=== PATIENT | male | born 1995 | race Caucasian/White ===

== ENCOUNTER → 2019-06-17 18:35 | Outpatient (CLI) | payer OTHER, SELFPAY ==
[2019-06-17 19:18] LABS: Influenza A - CEPHEID Flu A NEGATIVE (NEGATIVE); Influenza B - CEPHEID Flu B NEGATIVE (NEGATIVE)
== END ==
PROVIDERS: Family Provider Pediatrics; PCP Pediatrics; Visit Provider Physician Assistant
DX: J11.1 Influenza due to unidentified influenza virus with other respiratory manifestations (principal)
CPT/HCPCS: 87502

== ENCOUNTER 2019-06-18 09:21 | Observation (INO) | payer OTHER, SELFPAY ==
[2019-06-18] VITALS (10 sets, daily range): BP systolic 95–118; BP diastolic 57–75; PULSE 68–92; RESP 15–24; TEMP 36.4–36.6; O2SAT 97–99; BMI 30.4
--- NOTE | 2019-06-18 09:32 | DI.RAD.S_ITS ---
PROCEDURE: XR CHEST 2V INDICATIONS: Shortness of breath TECHNIQUE: 2 views of the chest were acquired. COMPARISON: [facility], , CHEST 2 VIEW, 04/18/2011, 16:37. FINDINGS: Surgical changes and devices: None. Lungs and pleura: Lungs are clear. No pleural effusions or pneumothorax. Mediastinum: Mediastinal contours are normal. Heart size is normal. Bones and chest wall: No suspicious bony abnormalities. Soft tissues appear unremarkable. IMPRESSION: No acute cardiopulmonary pathology. Dictated by: Abad Toribio M.D. on 06/18/2019 at 10:21 Approved by: Abad Toribio M.D. on 06/18/2019 at 10:24
--- NOTE | 2019-06-18 09:44 | ED_ITS ---
HPI - Chest Pain General Chief Complaint: Chest Pain Stated Complaint: flu symptoms, chest pain Time Seen by Provider: 06/18/19 09:31 Source: patient Mode of arrival: Ambulatory Limitations: no limitations History of Present Illness HPI narrative: Otherwise healthy 24-year-old male here for evaluation of chest pain and shortness of breath and flu-like symptoms. Patient states that earlier this week he started developed flu-like symptoms. Was seen in the walk-in clinic yesterday. Had a negative flu. Has not been on antibiotics. Woke up this morning with chest pain and shortness of breath. It has been going on for the past 2 hours. Has not tried anything for symptoms. Related Data Home Medications Medication Instructions Recorded Confirmed No Known Home Medications 04/02/19 06/18/19 Allergies Allergy/AdvReac Type Severity Reaction Status Date / Time No Known Drug Allergies Allergy Verified 06/18/19 09:27 Review of Systems Constitutional Constitutional: Reports chills and Reports fever(s) Cardiovascular Cardiovascular: Denies rapid heart rate, Denies edema, Reports dyspnea and Denies dyspnea on exertion Respiratory Respiratory: Reports dyspnea and Denies dyspnea on exertion Gastrointestinal Gastrointestinal: Denies abdominal pain, Reports nausea and Denies vomiting Musculoskeletal Musculoskeletal: Denies myalgias and Denies arthralgias Integumentary/Breasts Skin/Breast: Denies lesions and Denies rash Neurologic Neurologic: Denies behavioral changes Psychiatric Psychiatric: Denies behavioral changes Hematologic/Lymphatic Hematologic/Lymphatic: Denies easy bleeding and Denies easy bruising Patient History Medical History Viral syndrome (Acute) Social History household members: family Smoking Status: Never smoker Smoking Status: Never smoker alcohol intake frequency: holidays/special occasions only Substance Use Type: does not use Exam Initial Vital Signs Initial Vital Signs: Vital Signs Temperature 97.6 F 06/18/19 09:27 Pulse Rate 68 06/18/19 09:27 Respiratory Rate 15 06/18/19 09:27 Blood Pressure 111/74 06/18/19 09:27 Pulse Oximetry 99 06/18/19 09:27 Const General: cooperative, comfortable, well developed, well groomed and diaphoretic Limitations: mental status not altered [facility] Head: normocephalic Chest Chest: normal inspection of the chest, No crepitus and No tenderness Resp Effort & Inspection: normal respiratory effort Auscultation: clear to auscultation bilaterally Cardio Rate: regular rate Rhythm: regular rhythm GI Inspection: non-distended Palpation: soft, No firm and No tender Skin Lesions: no lesions Rashes: no rashes Neuro General: alert and awake Cognition: normal cognition Speech: speech normal Extrem General: normal to inspection and capillary refill normal Psych Appearance: grossly normal and well kempt Course Orders Ordered: ED Orders 06/18/19 09:50 Respiratory Panel (Film Array) Stat 06/18/19 11:19 EC echo doppler complete Stat 06/18/19 11:24 Lactate (Lactic Acid) Stat 06/18/19 11:41 Blood Culture Stat 06/18/19 14:44 Troponin I Stat Colchicine (Colcrys) 0.6 mg PO BID TAMIKO Influenza Virus Vaccine (Flu Vaccine) 0.5 ml IM .ONCE ONE Stop: 06/19/19 09:01 Lisinopril (Zestril) 2.5 mg PO DAILY TAMIKO Sodium Chloride (Normal Saline 0.9% Flush) 10 ml IV PRN PRN PRN Reason: Flush Sodium Chloride (Normal Saline 0.9% Flush) 10 ml IV BID TAMIKO Discontinued Medications Aspirin (Aspirin Chew) 324 mg PO NOW ONE Stop: 06/18/19 10:50 Last Admin: 06/18/19 11:14 Dose: 324 mg Documented by: GAIL Sodium Chloride (Normal Saline 0.9%) 1,000 mls @ 150 mls/hr IV CONT TAMIKO Last Infusion: 06/18/19 17:38 Dose: 0 mls/hr Documented by: Admin: 06/18/19 11:15 Dose: 150 mls/hr Documented by: GAIL Lisinopril (Zestril) 2.5 mg PO NOW ONE Stop: 06/18/19 18:20 Last Admin: 06/18/19 18:36 Dose: 2.5 mg Documented by: WALDO Vital Signs Vital signs: Vital Signs - 8 hr 06/18/19 11:10 06/18/19 12:00 06/18/19 13:00 Pulse Rate 92 H 87 87 Respiratory Rate 24 16 16 Blood Pressure [Left Arm] 117/75 118/57 L 111/68 Pulse Oximetry 97 99 98 06/18/19 14:00 06/18/19 16:00 06/18/19 17:00 Pulse Rate 82 86 85 Respiratory Rate 16 20 16 Blood Pressure [Left Arm] 106/59 L 112/63 115/63 Pulse Oximetry 98 98 98 MDM - Chest Pain Lab Data Attestation: I reviewed the patient's lab results. Result diagrams: 06/18/19 09:40 06/18/19 09:40 Labs: Lab Results 06/18/19 06/18/19 06/18/19 Range/Units 09:40 09:40 09:40 WBC 7.9 (4.5-11.0) X10^3/uL RBC 5.61 (4.5-5.9) X10^6/uL Hgb 16.3 (13.5-17.5) g/dL Hct 46.2 (41-53) % MCV 82.3 (80-100) fL MCH 29.1 (26-34) PG MCHC 35.3 (30-36) % RDW 13.3 (11.6-14.8) % Plt Count 212 (150-400) X10^3/uL Neut % (Auto) 59.7 (50-75) % Lymph % (Auto) 19.7 L (25-40) % [place] % (Auto) 19.8 H (3-14) % Eos % (Auto) 0.5 L (2-4) % Baso % (Auto) 0.3 (0-2) % Neut # (Auto) 4700 (9510-6560) /uL Lymph # (Auto) 1600 (2277-4122) /uL [place] # (Auto) 1600 H (0-900) /uL Eos # (Auto) 0 (0-450) /uL Baso # (Auto) 0 (0-100) /uL PT 13.5 H (10.1-12.7) SECONDS INR 1.2 (0.9-1.3) APTT 29 (26.4-36.2) SECONDS Sodium 139 (137-145) mmol/L Potassium 3.7 (3.4-5.1) mmol/L Chloride 98 (98-107) mmol/L Carbon Dioxide 27 (22-32) mmol/L BUN 12 (9-20) mg/dL Creatinine 1.00 (0.66-1.25) mg/dL Estimated GFR > 60.0 (>60) mL/min BUN/Creatinine Ratio 12.0 (6-22) Glucose 139 H (70-100) mg/dL Lactate (0.7-2.1) mmol/L Calcium 9.6 (8.4-10.2) mg/dL Total Bilirubin 1.1 (0.2-1.3) mg/dL AST 44 (17-59) IU/L ALT 21 (<50) IU/L Alkaline Phosphatase 84 (38-126) U/L Total Creatine Kinase (55-170) U/L CK-MB (CK-2) (<2.37) ng/mL CK-MB (CK-2) Rel Index (1.5-5.0) % Troponin I Cancelled C-Reactive Protein 5.6 H (<1.0) mg/dL Total Protein 8.2 (6.3-8.2) g/dL Albumin 4.8 (3.5-5.0) g/dL Globulin 3.4 (1.7-4.1) g/dL Albumin/Globulin Ratio 1.4 (1.0-2.8) Lipase 39 (23-300) U/L Procalcitonin (<0.5) ng/mL Chlamy pneumoniae PCR (Not Detect) Adenovirus (PCR) (Not Detect) B.parapertussis DNA PCR (Not Detect) Coronavirus OC43 (PCR) (Not Detect) Coronavirus HKU1 (PCR) (Not Detect) Coronavirus 229E (PCR) (Not Detect) Coronavirus NL63 (PCR) (Not Detect) Human Metapneumovir PCR (Not Detect) Influenza Type A (PCR) (Not Detect) Influenza Type B (PCR) (Not Detect) M. pneumoniae (PCR) (Not Detect) Parainfluenza 1 (PCR) (Not Detect) Parainfluenza 2 (PCR) (Not Detect) Parainfluenza 3 (PCR) (Not Detect) Parainfluenza 4 (PCR) (Not Detect) RSV (PCR) (Not Detect) Entero/Rhino (PCR) (Not Detect) 06/18/19 06/18/19 06/18/19 Range/Units 09:40 09:40 09:50 WBC (4.5-11.0) X10^3/uL RBC (4.5-5.9) X10^6/uL Hgb (13.5-17.5) g/dL Hct (41-53) % MCV (80-100) fL MCH (26-34) PG MCHC (30-36) % RDW (11.6-14.8) % Plt Count (150-400) X10^3/uL Neut % (Auto) (50-75) % Lymph % (Auto) (25-40) % [place] % (Auto) (3-14) % Eos % (Auto) (2-4) % Baso % (Auto) (0-2) % Neut # (Auto) (3072-3475) /uL Lymph # (Auto) (2069-1420) /uL [place] # (Auto) (0-900) /uL Eos # (Auto) (0-450) /uL Baso # (Auto) (0-100) /uL PT (10.1-12.7) SECONDS INR (0.9-1.3) APTT (26.4-36.2) SECONDS Sodium (137-145) mmol/L Potassium (3.4-5.1) mmol/L Chloride (98-107) mmol/L Carbon Dioxide (22-32) mmol/L BUN (9-20) mg/dL Creatinine (0.66-1.25) mg/dL Estimated GFR (>60) mL/min BUN/Creatinine Ratio (6-22) Glucose (70-100) mg/dL Lactate (0.7-2.1) mmol/L Calcium (8.4-10.2) mg/dL Total Bilirubin (0.2-1.3) mg/dL AST (17-59) IU/L ALT (<50) IU/L Alkaline Phosphatase (38-126) U/L Total Creatine Kinase 277 H (55-170) U/L CK-MB (CK-2) 19.00 H (<2.37) ng/mL CK-MB (CK-2) Rel Index 6.9 H* (1.5-5.0) % Troponin I 4.330 H* C-Reactive Protein (<1.0) mg/dL Total Protein (6.3-8.2) g/dL Albumin (3.5-5.0) g/dL Globulin (1.7-4.1) g/dL Albumin/Globulin Ratio (1.0-2.8) Lipase (23-300) U/L Procalcitonin 0.24 (<0.5) ng/mL Chlamy pneumoniae PCR Not detected (Not Detect) Adenovirus (PCR) Not detected (Not Detect) B.parapertussis DNA PCR Not detected (Not Detect) Coronavirus OC43 (PCR) Not detected (Not Detect) Coronavirus HKU1 (PCR) Not detected (Not Detect) Coronavirus 229E (PCR) Not detected (Not Detect) Coronavirus NL63 (PCR) Not detected (Not Detect) Human Metapneumovir PCR Not detected (Not Detect) Influenza Type A (PCR) Not detected (Not Detect) Influenza Type B (PCR) Not detected (Not Detect) M. pneumoniae (PCR) Not detected (Not Detect) Parainfluenza 1 (PCR) Not detected (Not Detect) Parainfluenza 2 (PCR) Not detected (Not Detect) Parainfluenza 3 (PCR) Not detected (Not Detect) Parainfluenza 4 (PCR) Not detected (Not Detect) RSV (PCR) Not detected (Not Detect) Entero/Rhino (PCR) Not detected (Not Detect) 06/18/19 06/18/19 Range/Units 11:24 14:44 WBC (4.5-11.0) X10^3/uL RBC (4.5-5.9) X10^6/uL Hgb (13.5-17.5) g/dL Hct (41-53) % MCV (80-100) fL MCH (26-34) PG MCHC (30-36) % RDW (11.6-14.8) % Plt Count (150-400) X10^3/uL Neut % (Auto) (50-75) % Lymph % (Auto) (25-40) % [place] % (Auto) (3-14) % Eos % (Auto) (2-4) % Baso % (Auto) (0-2) % Neut # (Auto) (0765-8231) /uL Lymph # (Auto) (7318-4465) /uL [place] # (Auto) (0-900) /uL Eos # (Auto) (0-450) /uL Baso # (Auto) (0-100) /uL PT (10.1-12.7) SECONDS INR (0.9-1.3) APTT (26.4-36.2) SECONDS Sodium (137-145) mmol/L Potassium (3.4-5.1) mmol/L Chloride (98-107) mmol/L Carbon Dioxide (22-32) mmol/L BUN (9-20) mg/dL Creatinine (0.66-1.25) mg/dL Estimated GFR (>60) mL/min BUN/Creatinine Ratio (6-22) Glucose (70-100) mg/dL Lactate 1.5 (0.7-2.1) mmol/L Calcium (8.4-10.2) mg/dL Total Bilirubin (0.2-1.3) mg/dL AST (17-59) IU/L ALT (<50) IU/L Alkaline Phosphatase (38-126) U/L Total Creatine Kinase (55-170) U/L CK-MB (CK-2) (<2.37) ng/mL CK-MB (CK-2) Rel Index (1.5-5.0) % Troponin I 15.900 H* C-Reactive Protein (<1.0) mg/dL Total Protein (6.3-8.2) g/dL Albumin (3.5-5.0) g/dL Globulin (1.7-4.1) g/dL Albumin/Globulin Ratio (1.0-2.8) Lipase (23-300) U/L Procalcitonin (<0.5) ng/mL Chlamy pneumoniae PCR (Not Detect) Adenovirus (PCR) (Not Detect) B.parapertussis DNA PCR (Not Detect) Coronavirus OC43 (PCR) (Not Detect) Coronavirus HKU1 (PCR) (Not Detect) Coronavirus 229E (PCR) (Not Detect) Coronavirus NL63 (PCR) (Not Detect) Human Metapneumovir PCR (Not Detect) Influenza Type A (PCR) (Not Detect) Influenza Type B (PCR) (Not Detect) M. pneumoniae (PCR) (Not Detect) Parainfluenza 1 (PCR) (Not Detect) Parainfluenza 2 (PCR) (Not Detect) Parainfluenza 3 (PCR) (Not Detect) Parainfluenza 4 (PCR) (Not Detect) RSV (PCR) (Not Detect) Entero/Rhino (PCR) (Not Detect) Imaging Data Chest x-ray: Radiologist's Impression: [address] [id number] XRay Report Signed Patient: Charlene Anderson WMR#: [id number] : 1995Acct:[id number] Age/Sex: 24 / MDate of Service: 06/18/19 Loc: ED Accession Number: [id number] Procedure: XR chest 2V Ordering Provider: Tato Arellano D.O. PROCEDURE: XR CHEST 2V INDICATIONS: Shortness of breath TECHNIQUE: 2 views of the chest were acquired. COMPARISON: [facility] , CHEST 2 VIEW, 04/18/2011, 16:37. FINDINGS: Surgical changes and devices: None. Lungs and pleura: Lungs are clear. No pleural effusions or pneumothorax. Mediastinum: Mediastinal contours are normal. Heart size is normal. Bones and chest wall: No suspicious bony abnormalities. Soft tissues appear unremarkable. IMPRESSION: No acute cardiopulmonary pathology. Dictated by: Abad Toribio M.D. on 06/18/2019 at 10:21 Approved by: Abad Toribio M.D. on 06/18/2019 at 10:24 echo: Radiologist's Impression: [address] [address] Echocardiography Report Signed Patient: Charlene Anderson WMR#: [id number] : 1995Acct:[id number] Age/Sex: 24 / MDate of Service: 06/18/19 Loc: ED Accession Number: [id number] Procedure: EC echo doppler complete Ordering Provider: Tato Arellano D.O. [place] +---------+ [facility] +---------+ : : [address] [place] [address] : : : : [place], [place] : : : : [id number] : : : : Phone: [phone]+ Echocardiogram Report + + :Name: CHARLENE ANDERSON Study Date: 06/18/2019 Height: 68 in : :[facility] Weight: 200 lb : : Gender: Male BSA: 2.0 m2 : :: 1995 Age: 24 yrs BP: 111/74 mmHg: :Reason For Study: PERICARDITIS : :Ordering Physician: [place] : :Hospitalist Performed By: Meena Brown : :Referring: TATO ARELLANO : + + Interpretation Summary Left ventricular systolic function is mildly reduced with the ejection fraction visually estimated to be 40-45% with mild global hypokinesis but no obvious focal wall motion abnormalities . There is borderline concentric left ventricular hypertrophy. The right ventricle is normal in size and function. Pulmonary artery pressures cannot be estimated because of the lack of a measurable TR jet velocity but the IVC suggests a CVP of around 3 mmHg. Both atria are normal in size. There is mild mitral regurgitation but no other significant valvular heart disease. There is no pericardial effusion. Procedure: A two-dimensional transthoracic echocardiogram with color flow and Doppler was performed. The study quality was technically adequate. There is no prior echocardiogram noted for this patient. The patient was in normal sinus rhythm during the exam. Left Ventricle: The left ventricle is normal in size. There is borderline concentric left ventricular hypertrophy. Left ventricular systolic function is mildly reduced. The ejection fraction is estimated to be 40-45%. There is mild global hypokinesis of the left ventricle. There are no focal wall motion abnormalities. Diastolic parameters suggest probable normal left ventricular diastolic function and normal filling pressures. Right Ventricle: The right ventricle is normal in size and function. Atria: Both atria are normal in size. There is no Doppler evidence for an interatrial shunt. Mitral Valve: The mitral valve leaflets appear normal. There is no evidence of stenosis, fluttering, or prolapse. There is mild mitral regurgitation. Aortic Valve: The aortic valve is trileaflet. The aortic valve opens well. There is no aortic valve stenosis. No aortic regurgitation is present. Tricuspid Valve: The tricuspid valve is normal in structure and function. There is a trace or physiologic amount of tricuspid regurgitation. Pulmonary artery pressures cannot be estimated because of the lack of a measurable TR jet velocity but the IVC suggests a CVP of around 3 mmHg. Pulmonic Valve: The pulmonic valve is normal in structure and function. There is a trace or physiologic amount of pulmonic regurgitation. There is no other significant valvular heart disease. Great Vessels: The aortic root is normal size. The dimensions of the ascending aorta are normal. The IVC is of normal diameter and collapses greater than 50% with a sniff. This suggests a low right atrial pressure of 3 mm Hg. Pericardium/ Pleura There is no pericardial effusion. There is no pleural effusion. MMode/2D Measurements & Calculations LVIDd: 5.3 cm LVOT diam: 2.3 cm LVIDs: 3.8 cm Ao root diam: 2.9 cm FS: 28.1 % asc Aorta Diam: 3.0 cm EPSS: 1.2 cm Ao Arch Diam (Prox Trans): 2.9 cm IVSd: 0.82 cm LVPWd: 1.0 cm LV faria. diameter/BSA (cm/m^2): 2.6 LV sys. diameter/BSA (cm/m^2): 1.9 LA A2 area: 17.6 cm2 RA long axis: 4.9 cm LA A4 area: 16.9 cm2 RA area: 16.1 cm2 LA length (vol): 5.2 cm RA vol: 44.9 ml LA vol: 48.7 ml RA : 22.0 ml/m2 LA vol index: 23.8 ml/m2 IVC diam: 1.2 cm RVD1 (basal): 3.9 cm TAPSE: 2.0 cm Doppler Measurements & Calculations Ao V2 max: 94.7 cm/sec LVOT Max [place]: 84.1 cm/sec Ao V2 mean: 66.2 cm/sec LV V1 max P.8 mmHg Ao max P.6 mmHg LV V1 VTI: 16.4 cm Ao mean P.0 mmHg LATA(I,D): 3.5 cm2 Ao V2 VTI: 19.8 cm LATA(V,D): 3.8 cm2 sev ratio: 0.82 LATA indexed to BSA (cm^2/m^2): 1.7 MV E max howard: 48.4 cm/sec PA Accel Time: 0.08 sec MV A max howard: 55.5 cm/sec MV E/A: 0.87 Med Peak E' Hwoard: 7.4 cm/sec E/E' med: 6.6 Lat Peak E' Howard: 9.9 cm/sec E/E' lat: 4.9 E/e' average: 5.7 MV dec time: 0.15 sec MV P1/2t: 44.3 msec MV P1/2t max howard: 49.0 cm/sec SV(LVOT): 69.7 ml MVA(P1/2t): 5.0 cm2 Reading Physician:PM ECG Data Attestation: I personally reviewed and interpreted this ECG as follows: Prior ECG tracings: not available for review Interpretation: Sinus rhythm Ventricular rate 75 QRS 112 milliseconds Normal QTC Nonspecific ST T wave changes Repeat EKG without pain Sinus rhythm Ventricular rate 83 Normal axis Normal QRS Incomplete right bundle-branch block Nonspecific ST T wave changes MDM Narrative Medical decision making narrative: Approximately 45 minutes after patient arrived emergency body was symptom free. He was nontoxic appearing. Is not hypotensive. Nonspecific changes on the EKG. Nonspecific flu-like illness symptoms upon arrival. Denies drug use. Denies recent immunizations. Denies recent travel. Initial troponin elevated. Was given aspirin. Discussed the case with Dr. Doan landscaping crew leader at [facility] who recommended echocardiogram. This was performed. Dr. Doan read the echocardiogram. Stated that he did not believe that the patient needed cardiac catheterization. Recommend re peating troponin admission for observation for pericarditis/myocarditis. Second troponin elevated. I did discuss this with Dr. Doan who again stated that he did not feel the patient need cardiac catheterization. I also discussed the case with Cardiology at [facility] secondary to the request by hospitalist at this facility. Laboratory Mechanic Helper there agreed that patient does not need to be a facility right now with Cardiology given his clinical presentation. I did discuss case with Dr. Skinner hospitalist who accepts the patient. Discuss the findings with the patient and they indications for admission. He expressed understanding and agreement. I did consider other etiologies such as pulmonary embolism, ACS, endocarditis, pneumonia. Discharge Plan Departure Patient Disposition: Admitted As Inpatient Clinical Impression: Pericarditis Qualifiers: Pericarditis type: unspecified type Chronicity: acute Qualified Code(s): I30.9 - Acute pericarditis, unspecified Myocarditis Qualifiers: Myocarditis type: other Chronicity: acute Qualified Code(s): I40.8 - Other acute myocarditis Discharge Date/Time: 06/18/19 17:39 Admit Date/Time: 06/18/19 17:09 Admit Provider: Leobardo Skinner
[2019-06-18 09:53] LABS: Add Manual Diff / Slide Review NO; Basophils Absolute Auto 0 /uL (0-100); Basophils Percent Auto 0.3 % (0-2); Eosinophils Absolute Auto 0 /uL (0-450); Eosinophils Percent Auto 0.5 % (2-4); Hematocrit 46.2 % (41-53); Hemoglobin 16.3 g/dL (13.5-17.5); Lymphocytes Absolute Auto 1600 /uL (1100-4500); Lymphocytes Percent Auto 19.7 % (25-40); Mean Corpuscular HGB Conc 35.3 % (30-36); Mean Corpuscular Hemoglobin 29.1 PG (26-34); Mean Corpuscular Volume 82.3 fL (80-100); Monocytes Absolute Auto 1600 /uL (0-900); Monocytes Percent Auto 19.8 % (3-14); Neutrophils Absolute Auto 4700 /uL (1500-7000); Neutrophils Percent Auto 59.7 % (50-75); Platelet Count 212 X10^3/uL (150-400); Red Blood Cell Count 5.61 X10^6/uL (4.5-5.9); Red Cell Distribution Width 13.3 % (11.6-14.8); White Blood Cell Count 7.9 X10^3/uL (4.5-11.0)
--- NOTE | 2019-06-18 09:53 | PC.NURSE ---
Patient reports began with headache, fever/chills, body aches, and diarrhea on Saturday. No cough or respiratory symptoms. Yesterday still feeling unwell so went to Walk in clinic, states he felt some tightness in his chest at that time. Flu swab was negative. He reports today he woke up with constant chest pain and shortness of breath. Denies that pain is worse with palpation, movement, or inspiration. Pain is constant in middle of chest.
--- NOTE | 2019-06-18 09:58 | PC.NURSE ---
Droplet precautions maintained. Mask worn by patient and this EDRN at all times while caring for patient and will continue to do so.
[2019-06-18 10:00] LABS: INR 1.2 (0.9-1.3); Prothrombin Time 13.5 SECONDS (10.1-12.7)
[2019-06-18 10:03] LABS: PTT Partial Thromboplastin Tim 29 SECONDS (26.4-36.2)
[2019-06-18 10:08] LABS: Creatine Kinase 277 U/L (55-170)
[2019-06-18 10:18] LABS: Alanine Aminotransferase 21 IU/L (<50); Albumin 4.8 g/dL (3.5-5.0); Albumin Globulin Ratio 1.4 (1.0-2.8); Alkaline Phosphatase 84 U/L (38-126); Aspartate Aminotransferase 44 IU/L (17-59); Bilirubin Total 1.1 mg/dL (0.2-1.3); Blood Urea Nitrogen 12 mg/dL (9-20); C-Reactive Protein Quant 5.6 mg/dL (<1.0); Calcium 9.6 mg/dL (8.4-10.2); Carbon Dioxide 27 mmol/L (22-32); Chloride 98 mmol/L (98-107); Estimated Glomerular Filt Rate > 60.0 mL/min (>60); Globulin 3.4 g/dL (1.7-4.1); Glucose 139 mg/dL (70-100); HEMOLYSIS < 15 (0-50); Lipase 39 U/L (23-300); Potassium 3.7 mmol/L (3.4-5.1); Sodium 139 mmol/L (137-145); Total Protein 8.2 g/dL (6.3-8.2)
[2019-06-18 10:22] LABS: Procalcitonin 0.24 ng/mL (<0.5)
[2019-06-18 10:46] LABS: CKMB % Relative Index 6.9 % (1.5-5.0)
[2019-06-18] MEDS: ASPIRIN 81 MG CHEW TAB 324 MG PO (11:14)
[2019-06-18] MEDS: SODIUM CHLORIDE 0.9% 1,000 ML 150 ML IV (11:15)
--- NOTE | 2019-06-18 11:19 | DI.ECHO.S_ITS ---
[place] +---------+ [facility] +---------+ : : [address] : : : : [address] : : : : Phone: [phone]+ Echocardiogram Report + + :Name: CHARLENE RILEY Study Date: 06/18/2019 Height: 68 in : :Hospital Weight: 200 lb : : Gender: Male BSA: 2.0 m2 : :: 1995 Age: 24 yrs BP: 111/74 mmHg: :Reason For Study: PERICARDITIS : :Ordering Physician: Jareth : :Hospitalist Performed By: Meena Brown : :Referring: SARAN HERNANDEZ : + + Interpretation Summary Left ventricular systolic function is mildly reduced with the ejection fraction visually estimated to be 40-45% with mild global hypokinesis but no obvious focal wall motion abnormalities . There is borderline concentric left ventricular hypertrophy. The right ventricle is normal in size and function. Pulmonary artery pressures cannot be estimated because of the lack of a measurable TR jet velocity but the IVC suggests a CVP of around 3 mmHg. Both atria are normal in size. There is mild mitral regurgitation but no other significant valvular heart disease. There is no pericardial effusion. Procedure: A two-dimensional transthoracic echocardiogram with color flow and Doppler was performed. The study quality was technically adequate. There is no prior echocardiogram noted for this patient. The patient was in normal sinus rhythm during the exam. Left Ventricle: The left ventricle is normal in size. There is borderline concentric left ventricular hypertrophy. Left ventricular systolic function is mildly reduced. The ejection fraction is estimated to be 40-45%. There is mild global hypokinesis of the left ventricle. There are no focal wall motion abnormalities. Diastolic parameters suggest probable normal left ventricular diastolic function and normal filling pressures. Right Ventricle: The right ventricle is normal in size and function. Atria: Both atria are normal in size. There is no Doppler evidence for an interatrial shunt. Mitral Valve: The mitral valve leaflets appear normal. There is no evidence of stenosis, fluttering, or prolapse. There is mild mitral regurgitation. Aortic Valve: The aortic valve is trileaflet. The aortic valve opens well. There is no aortic valve stenosis. No aortic regurgitation is present. Tricuspid Valve: The tricuspid valve is normal in structure and function. There is a trace or physiologic amount of tricuspid regurgitation. Pulmonary artery pressures cannot be estimated because of the lack of a measurable TR jet velocity but the IVC suggests a CVP of around 3 mmHg. Pulmonic Valve: The pulmonic valve is normal in structure and function. There is a trace or physiologic amount of pulmonic regurgitation. There is no other significant valvular heart disease. Great Vessels: The aortic root is normal size. The dimensions of the ascending aorta are normal. The IVC is of normal diameter and collapses greater than 50% with a sniff. This suggests a low right atrial pressure of 3 mm Hg. Pericardium/ Pleura There is no pericardial effusion. There is no pleural effusion. MMode/2D Measurements & Calculations LVIDd: 5.3 cm LVOT diam: 2.3 cm LVIDs: 3.8 cm Ao root diam: 2.9 cm FS: 28.1 % asc Aorta Diam: 3.0 cm EPSS: 1.2 cm Ao Arch Diam (Prox Trans): 2.9 cm IVSd: 0.82 cm LVPWd: 1.0 cm LV faria. diameter/BSA (cm/m^2): 2.6 LV sys. diameter/BSA (cm/m^2): 1.9 LA A2 area: 17.6 cm2 RA long axis: 4.9 cm LA A4 area: 16.9 cm2 RA area: 16.1 cm2 LA length (vol): 5.2 cm RA vol: 44.9 ml LA vol: 48.7 ml RA : 22.0 ml/m2 LA vol index: 23.8 ml/m2 IVC diam: 1.2 cm RVD1 (basal): 3.9 cm TAPSE: 2.0 cm Doppler Measurements & Calculations Ao V2 max: 94.7 cm/sec LVOT Max [place]: 84.1 cm/sec Ao V2 mean: 66.2 cm/sec LV V1 max P.8 mmHg Ao max P.6 mmHg LV V1 VTI: 16.4 cm Ao mean P.0 mmHg LATA(I,D): 3.5 cm2 Ao V2 VTI: 19.8 cm LATA(V,D): 3.8 cm2 sev ratio: 0.82 LATA indexed to BSA (cm^2/m^2): 1.7 MV E max howard: 48.4 cm/sec PA Accel Time: 0.08 sec MV A max howard: 55.5 cm/sec MV E/A: 0.87 Med Peak E' Howard: 7.4 cm/sec E/E' med: 6.6 Lat Peak E' Howard: 9.9 cm/sec E/E' lat: 4.9 E/e' average: 5.7 MV dec time: 0.15 sec MV P1/2t: 44.3 msec MV /2t max howard: 49.0 cm/sec SV(LVOT): 69.7 ml MVA(2t): 5.0 cm2 Reading Physician:DERREK
[2019-06-18 11:58] LABS: Adenovirus Not Detected (Not Detect); Bordetella pertussis Not Detected (Not Detect); Chlamydophila pneumoniae Not Detected (Not Detect); Coronavirus 229E Not Detected (Not Detect); Coronavirus HKU1 Not Detected (Not Detect); Coronavirus NL 63 Not Detected (Not Detect); Coronavirus OC43 Not Detected (Not Detect); Human Metapneumovirus Not Detected (Not Detect); Human Rhinovirus/Enterovirus Not Detected (Not Detect); Influenza A Not Detected (Not Detect); Influenza B Not Detected (Not Detect); Mycoplasma pneumoniae Not Detected (Not Detect); Parainfluenza Virus 1 Not Detected (Not Detect); Parainfluenza Virus 2 Not Detected (Not Detect); Parainfluenza Virus 3 Not Detected (Not Detect); Parainfluenza Virus 4 Not Detected (Not Detect); Respiratory Syncytial Virus Not Detected (Not Detect)
[2019-06-18 12:02] LABS: Lactate (Lactic Acid) 1.5 mmol/L (0.7-2.1)
--- NOTE | 2019-06-18 17:12 | PM.HP.1 ---
History of Present Illness History of Present Illness Date Patient Seen: 06/18/19 Time Patient Seen: 17:12 Chief complaint: flu symptoms, chest pain Narrative: Brad Anderson is a 24 year old male with no known PMH who presented to the emergency room today with chest pain and shortness of breath. Patient states starting 3 days ago he has had flu-like symptoms including headaches, fevers, chills, body aches, and diarrhea. He did take Imodium which helped him to be able to drink some fluids and then his diarrhea stopped. He denies any abdominal pain, dysuria, cough, nasal congestion, sore throat. His mom was recently had a mild cold. He went to the walk-in clinic yesterday, had a negative flu swab. But came into the emergency room this morning when he had chest pain and shortness of breath. His chest pain lasted for about 2 hours in total, then resolved. The patient was given full-dose aspirin in the emergency room. He denies any previous rashes, recent hiking or hunting. He further states that his viral symptoms have completely resolved at this point, and that he actually feels quite well. In the emergency room, patient was initially tachycardic, but this resolved without any interventions, an the remainder of his vital signs were unremarkable. His chest x-ray was unremarkable. Initial EKG showed normal sinus rhythm, an incomplete right bundle branch block, ST elevations in leads I, II, V5-6, TWI in III, and ST depressions in V2. Similar EKG done 2 minutes later (9:40). Initial troponin was 4.33. Repeat EKG with troponin at 13:35 showed improved / resolved ST changes but still with RBBB and TWI in lead III. Repeat troponin was 15.9. CRP was 5.6. CBC was unremarkable, as was basic chemistries other than a glucose of 139. Respiratory panel was negative. ER consulted cardiology at [facility] who recommended conservative management. Given repeat troponin I asked that the ER discussed the case with cardiology at [facility] as well. They had similar recommendations and said that there was no need for transfer at this time. Patient was therefore admitted for further monitoring and troponins. I discussed the case with cardiology at [facility] who recommended checking additionally and ESR, but to continue to trend troponins and keep the patient on telemetry. Dr. Madera further recommended starting colchicine 0.6 mg twice daily and continuing this for at least 3 months. If the patient shows signs of fulminant disease, including hypotension and/or malignant arrhythmia, he should transferred to a center with an LVAD program which would include [facility]. Patient History Medical History Viral syndrome (Acute) Family & Social History Safety & Behavioral: Feels Safe in Current Yes Environment Been Physically Hurt or No Threatened By a Person Tobacco & Substance use: Smoking Status Never smoker alcohol intake frequency holiday/special occasion Substance Use Type does not use Meds Home Medications and Allergies Home Medications Medication Instructions Recorded Confirmed Type No Known Home Medications 04/02/19 06/18/19 History Allergies Allergy/AdvReac Type Severity Reaction Status Date / Time No Known Drug Allergies Allergy Verified 06/18/19 09:27 Review of Systems Review of Systems Narrative: All other systems reviewed with the patient and are negative unless otherwise stated. Exam Vital Signs (past 8 hours): - 06/18/19 09:27 06/18/19 10:10 06/18/19 11:10 Temperature 97.6 F Pulse Rate 68 76 92 H Respiratory Rate 15 18 24 Blood Pressure 111/74 Blood Pressure [Left Arm] 95/62 117/75 Pulse Oximetry 99 98 97 06/18/19 12:00 06/18/19 13:00 06/18/19 14:00 Temperature Pulse Rate 87 87 82 Respiratory Rate 16 16 16 Blood Pressure Blood Pressure [Left Arm] 118/57 L 111/68 106/59 L Pulse Oximetry 99 98 98 06/18/19 16:00 06/18/19 17:00 Temperature Pulse Rate 86 85 Respiratory Rate 20 16 Blood Pressure Blood Pressure [Left Arm] 112/63 115/63 Pulse Oximetry 98 98 Oxygen Delivery Method Room Air Narrative Exam Narrative: GENERAL APPEARANCE: Well developed, well nourished, in no acute distress. SKIN: Inspection of the skin reveals no rashes, ulcerations or petechiae. HEENT: The sclerae were anicteric and conjunctivae were pink and moist. Extraocular movements were intact and pupils were equal, round with normal accommodation. External inspection of the ears and nose showed no scars, lesions, or masses. Lips, teeth, and gums showed normal mucosa. The oral mucosa, hard and soft palate, tongue and posterior pharynx were unremarkable. NECK: Supple and symmetric. There was no thyroid enlargement, and no tenderness, or masses were felt. CHEST: Normal AP diameter and normal contour without any kyphoscoliosis. LUNGS: Auscultation of the lungs revealed no wheezes, rhonchi, or rales. CARDIOVASCULAR: There was a regular rate and rhythm without any murmurs, gallops, rubs. Peripheral pulses were 2+ and symmetric. ABDOMEN: Soft and nontender with normal bowel sounds. No ascites was noted. MUSCULOSKELETAL: There was no tenderness or effusions noted. Muscle strength and tone were normal. EXTREMITIES: No cyanosis, clubbing or edema. NEUROLOGIC: Alert and oriented x 3. Normal affect. Strength is +5/5 in the Upper Extremities and Lower Extremities Bilaterally. Sensation to touch was normal. Objective ECG Impression: As noted above in HPI Imaging Echocardiogram: Radiologist's impression: Left ventricular systolic function is mildly reduced with the ejection fraction visually estimated to be 40-45% with mild global hypokinesis but no obvious focal wall motion abnormalities . There is borderline concentric left ventricular hypertrophy. The right ventricle is normal in size and function. Pulmonary artery pressures cannot be estimated because of the lack of a measurable TR jet velocity but the IVC suggests a CVP of around 3 mmHg. Both atria are normal in size. There is mild mitral regurgitation but no other significant valvular heart disease. There is no pericardial effusion. Chest x-ray: My impression: No acute cardiopulmonary disease. Radiologist's impression: No acute cardiopulmonary disease. Labs Result Diagrams: 06/18/19 09:40 06/18/19 09:40 Labs: Laboratory Results - last 24 hr 06/18/19 06/18/19 06/18/19 09:40 09:40 09:40 WBC 7.9 RBC 5.61 Hgb 16.3 Hct 46.2 MCV 82.3 MCH 29.1 MCHC 35.3 RDW 13.3 Plt Count 212 Neut % (Auto) 59.7 Lymph % (Auto) 19.7 L [place] % (Auto) 19.8 H Eos % (Auto) 0.5 L Baso % (Auto) 0.3 Neut # (Auto) 4700 Lymph # (Auto) 1600 [place] # (Auto) 1600 H Eos # (Auto) 0 Baso # (Auto) 0 PT 13.5 H INR 1.2 APTT 29 Sodium 139 Potassium 3.7 Chloride 98 Carbon Dioxide 27 BUN 12 Creatinine 1.00 Estimated GFR > 60.0 BUN/Creatinine Ratio 12.0 Glucose 139 H Lactate Calcium 9.6 Total Bilirubin 1.1 AST 44 ALT 21 Alkaline Phosphatase 84 Total Creatine Kinase CK-MB (CK-2) CK-MB (CK-2) Rel Index Troponin I Cancelled C-Reactive Protein 5.6 H Total Protein 8.2 Albumin 4.8 Globulin 3.4 Albumin/Globulin Ratio 1.4 Lipase 39 Procalcitonin Chlamy pneumoniae PCR Adenovirus (PCR) B.parapertussis DNA PCR Coronavirus OC43 (PCR) Coronavirus HKU1 (PCR) Coronavirus 229E (PCR) Coronavirus NL63 (PCR) Human Metapneumovir PCR Influenza Type A (PCR) Influenza Type B (PCR) M. pneumoniae (PCR) Parainfluenza 1 (PCR) Parainfluenza 2 (PCR) Parainfluenza 3 (PCR) Parainfluenza 4 (PCR) RSV (PCR) Entero/Rhino (PCR) 06/18/19 06/18/19 06/18/19 09:40 09:40 09:50 WBC RBC Hgb Hct MCV MCH MCHC RDW Plt Count Neut % (Auto) Lymph % (Auto) [place] % (Auto) Eos % (Auto) Baso % (Auto) Neut # (Auto) Lymph # (Auto) [place] # (Auto) Eos # (Auto) Baso # (Auto) PT INR APTT Sodium Potassium Chloride Carbon Dioxide BUN Creatinine Estimated GFR BUN/Creatinine Ratio Glucose Lactate Calcium Total Bilirubin AST ALT Alkaline Phosphatase Total Creatine Kinase 277 H CK-MB (CK-2) 19.00 H CK-MB (CK-2) Rel Index 6.9 H* Troponin I 4.330 H* C-Reactive Protein Total Protein Albumin Globulin Albumin/Globulin Ratio Lipase Procalcitonin 0.24 Chlamy pneumoniae PCR Not detected Adenovirus (PCR) Not detected B.parapertussis DNA PCR Not detected Coronavirus OC43 (PCR) Not detected Coronavirus HKU1 (PCR) Not detected Coronavirus 229E (PCR) Not detected Coronavirus NL63 (PCR) Not detected Human Metapneumovir PCR Not detected Influenza Type A (PCR) Not detected Influenza Type B (PCR) Not detected M. pneumoniae (PCR) Not detected Parainfluenza 1 (PCR) Not detected Parainfluenza 2 (PCR) Not detected Parainfluenza 3 (PCR) Not detected Parainfluenza 4 (PCR) Not detected RSV (PCR) Not detected Entero/Rhino (PCR) Not detected 06/18/19 06/18/19 11:24 14:44 WBC RBC Hgb Hct MCV MCH MCHC RDW Plt Count Neut % (Auto) Lymph % (Auto) [place] % (Auto) Eos % (Auto) Baso % (Auto) Neut # (Auto) Lymph # (Auto) [place] # (Auto) Eos # (Auto) Baso # (Auto) PT INR APTT Sodium Potassium Chloride Carbon Dioxide BUN Creatinine Estimated GFR BUN/Creatinine Ratio Glucose Lactate 1.5 Calcium Total Bilirubin AST ALT Alkaline Phosphatase Total Creatine Kinase CK-MB (CK-2) CK-MB (CK-2) Rel Index Troponin I 15.900 H* C-Reactive Protein Total Protein Albumin Globulin Albumin/Globulin Ratio Lipase Procalcitonin Chlamy pneumoniae PCR Adenovirus (PCR) B.parapertussis DNA PCR Coronavirus OC43 (PCR) Coronavirus HKU1 (PCR) Coronavirus 229E (PCR) Coronavirus NL63 (PCR) Human Metapneumovir PCR Influenza Type A (PCR) Influenza Type B (PCR) M. pneumoniae (PCR) Parainfluenza 1 (PCR) Parainfluenza 2 (PCR) Parainfluenza 3 (PCR) Parainfluenza 4 (PCR) RSV (PCR) Entero/Rhino (PCR) Assessment & Plan Assessment & Plan narrative: Brad Anderson is a 24 year old male with no known PMH who presented to the emergency room today with chest pain and shortness of breath. He is admitted under observation status for myopericarditis. 1. Myopericarditis, acute, present on admission -continue to trend troponins, values are not prognostic for outcome. -echocardiogram: Left ventricular systolic function is mildly reduced with the ejection fraction visually estimated to be 40-45% with mild global hypokinesis but no obvious focal wall motion abnormalities . There is borderline concentric left ventricular hypertrophy. The right ventricle is normal in size and function. Pulmonary artery pressures cannot be estimated because of the lack of a measurable TR jet velocity but the IVC suggests a CVP of around 3 mmHg. Both atria are normal in size. There is mild mitral regurgitation but no other significant valvular heart disease. There is no pericardial effusion. -continue telemetry -supportive care for viral syndrome. -start colchicine 0.6 mg b.i.d., per Dr. Madera continue x3 months and further start medical therapy for heart failure with reduced ejection fraction with beta-rich and YOLETTE-inhibitor as tolerated. -will start with low-dose lisinopril starting tonight, and add beta-rich as tolerated pending blood pressures. - CRP 5.6, check ESR. -if patient starts developing signs of fulminant disease, including hypotension or malignant arrhythmias, which is rare, he should be transferred to a center with an LVAD program, which would include [facility] in [facility]. -will risk stratify with A1c, TSH, and lipid panel given reduced injection fraction in case this is more chronic in nature. -rare etiologies of viral myopericarditis include hepatitis and HIV, will send off these serologies. 2. Viral syndrome, now resolved -continue supportive care, will hold on fluids given reduced ejection fraction and euvolemic appearance. Although patient is largely asymptomatic at this time. 3. Heart failure with reduced ejection fraction, likely acute, present on admission -continue care as noted above, heart failure is likely in the setting of myopericarditis. This usually resolves with above interventions. Patient will eat outpatient follow-up and repeat echocardiograms as an outpatient. Code: Full Dispo: Admitted under observation status as his stay is not expected to exceed two midnights.
--- NOTE | 2019-06-18 18:18 | PC.NURSE ---
Addendum entered by Teena Sigala R.N. 06/18/19 21:53: MANOLO Santos was notified by this magnetic tape typewriter operator of pt's 2100 troponin 10.200. Pt also informed. Addendum entered by Teena Sigala R.N. 06/18/19 21:31: Continues to deny chest pain. Independent to bathroom to void. Oral foods and fluids without difficulty. S.O. rooming in overnight. [place] in lab reports pt's 2100 troponin as 10.200. This is a trend downward from previously. Original Note: Pt to room 213 from E.R. via stretcher. Is able to ambulate to bed. Pt denies chest pain and was informed need to alert this magnetic tape typewriter operator if chest pain occurs. Family is present. Tele placed and ICU informed. Dr. Skinner in to speak with pt and pt's family.
[2019-06-18 18:34] LABS: Erythrocyte Sedimentation Rate 11 MM/HR (0-15)
[2019-06-18] MEDS: lisinopriL 5 MG TABLET 2.5 MG PO (18:36)
[2019-06-18] MEDS: SODIUM CHLORIDE 0.9% FLUSH 10 ML IV ×2 (20:34→23:44)
[2019-06-18] MEDS: COLCHICINE 0.6 MG TABLET PO (20:34)
[2019-06-19] VITALS: BP 102/72; PULSE 77; RESP 16; TEMP 37.2; O2SAT 99
[2019-06-19 03:10] LABS: Add Manual Diff / Slide Review NO; Basophils Absolute Auto 0 /uL (0-100); Basophils Percent Auto 0.6 % (0-2); Eosinophils Absolute Auto 0 /uL (0-450); Eosinophils Percent Auto 0.9 % (2-4); Hematocrit 43.1 % (41-53); Lymphocytes Absolute Auto 1600 /uL (1100-4500); Mean Corpuscular HGB Conc 34.9 % (30-36); Mean Corpuscular Hemoglobin 28.9 PG (26-34); Mean Corpuscular Volume 82.9 fL (80-100); Monocytes Absolute Auto 600 /uL (0-900); Monocytes Percent Auto 10.3 % (3-14); Neutrophils Absolute Auto 3200 /uL (1500-7000); Neutrophils Percent Auto 59.2 % (50-75); Platelet Count 202 X10^3/uL (150-400); Red Cell Distribution Width 13.3 % (11.6-14.8); White Blood Cell Count 5.5 X10^3/uL (4.5-11.0)
[2019-06-19 03:18] LABS: Cholesterol 141 mg/dL (140-199); HDL Cholesterol 19 mg/dL (40-60); LDL Cholesterol Calculated 94 mg/dL (<100); Triglycerides 141 mg/dL (35-150)
[2019-06-19 03:19] LABS: BUN Creatinine Ratio 11.1 (6-22); Blood Urea Nitrogen 10 mg/dL (9-20); Calcium 9.4 mg/dL (8.4-10.2); Carbon Dioxide 28 mmol/L (22-32); Chloride 102 mmol/L (98-107); Estimated Glomerular Filt Rate > 60.0 mL/min (>60); Glucose 90 mg/dL (70-100); HEMOLYSIS < 15 (0-50); Magnesium 2.3 mg/dL (1.6-2.3); Potassium 3.9 mmol/L (3.4-5.1); Sodium 139 mmol/L (137-145)
[2019-06-19 03:25] LABS: Hemoglobin A1C% w Est Avg Glu 4.9 % (4.0-6.0)
[2019-06-19 04:12] LABS: TSH w/ Reflex to FT4 6.07 uIU/mL (0.47-4.68)
[2019-06-19 04:19] LABS: Hepatitis B Surface Antigen NEGATIVE s/c (NEGATIVE)
[2019-06-19 04:30] LABS: HIV 1 & 2 Ab/Ag 4th Gen Combo NEGATIVE (NEGATIVE)
[2019-06-19 04:31] LABS: Hep C Virus Ab w/Reflex Quant NEGATIVE s/c (NEGATIVE)
[2019-06-19 04:44] LABS: Free T4, Direct Thyroxine 1.14 ng/dL (0.78-2.19)
[2019-06-19 05:00] VITALS: BP 97/56; PULSE 73; RESP 18; TEMP 36.2; O2SAT 99
--- NOTE | 2019-06-19 05:52 | PC.NURSE ---
Pt rested overnight without complaints. Denies chest pain, palpitations, SOB, dizziness. VSS. Monitoring specifically for hypotension, telemetry changes, and chest pain as plan would be to transfer to facility with LVAD capability per provider notes. Pt to receive flu shot today. 0300 Troponin level trending down at 6.210. Blood cx pending results. Respiratory virus panel negative. Plan to discharge today if pt stable.
[2019-06-19 07:40] VITALS: BP 111/70; PULSE 86; RESP 16; TEMP 36.4; O2SAT 99
[2019-06-19 08:47] VITALS: BP 111/70
[2019-06-19] MEDS: lisinopriL 5 MG TABLET 2.5 MG PO (08:47)
[2019-06-19] MEDS: COLCHICINE 0.6 MG TABLET PO (08:48)
[2019-06-19] MEDS: SODIUM CHLORIDE 0.9% FLUSH 10 ML IV (08:52)
--- NOTE | 2019-06-19 11:07 | CM.DANOTE ---
Discharge Planning/Care Management DCP: assessment: case received, EMR reviewed and met with pt during Morning Team Rounds. Introduced self and role. Pt is a 24 year old male who admitted yesterday evening to care of hospitalist team. Payer: Quirino Skinner stated that pt was fine for d/c to home today. Pt's fiance, at bedside, will take him home. No concerns re the d/c today were identified by pt or care team members. CM Discharge Assessment Start: 06/19/19 11:06 Freq: Status: Active Protocol: Document 06/19/19 11:06 ITV (Rec: 06/19/19 11:07 ITV [id number]) Discharge Planning Assessment Advance Directives? No History Provided By Patient,Significant Other, Medical Record Prior Living Arrangements House Independent with ADL's Yes Is patient alert and oriented? Yes Review Status In Process
--- NOTE | 2019-06-19 11:20 | PC.NURSE ---
Patient is going to be discharging home. He denies chest pain. Vital signs have been wnl and he is denies any kind of pain or cough. Girlfriend in room and pleasant. Heart sounds wnl and no murmur heard. Will go home around lunch time.
--- NOTE | 2019-06-19 11:26 | PM.DS.1 ---
History of Present Illness History of Present Illness Date Patient Seen: 06/19/19 Time Patient Seen: 11:27 Chief complaint: flu symptoms, chest pain Narrative: Brad Anderson is a 24 year old male with no known PMH who presented to the emergency room today with chest pain and shortness of breath. Patient states starting 3 days ago he has had flu-like symptoms including headaches, fevers, chills, body aches, and diarrhea. He did take Imodium which helped him to be able to drink some fluids and then his diarrhea stopped. He denies any abdominal pain, dysuria, cough, nasal congestion, sore throat. His mom was recently had a mild cold. He went to the walk-in clinic yesterday, had a negative flu swab. But came into the emergency room this morning when he had chest pain and shortness of breath. His chest pain lasted for about 2 hours in total, then resolved. The patient was given full-dose aspirin in the emergency room. He denies any previous rashes, recent hiking or hunting. He further states that his viral symptoms have completely resolved at this point, and that he actually feels quite well. In the emergency room, patient was initially tachycardic, but this resolved without any interventions, an the remainder of his vital signs were unremarkable. His chest x-ray was unremarkable. Initial EKG showed normal sinus rhythm, an incomplete right bundle branch block, ST elevations in leads I, II, V5-6, TWI in III, and ST depressions in V2. Similar EKG done 2 minutes later (9:40). Initial troponin was 4.33. Repeat EKG with troponin at 13:35 showed improved / resolved ST changes but still with RBBB and TWI in lead III. Repeat troponin was 15.9. CRP was 5.6. CBC was unremarkable, as was basic chemistries other than a glucose of 139. Respiratory panel was negative. ER consulted cardiology at [facility] who recommended conservative management. Given repeat troponin I asked that the ER discussed the case with cardiology at [facility] as well. They had similar recommendations and said that there was no need for transfer at this time. Patient was therefore admitted for further monitoring and troponins. I discussed the case with cardiology at [facility] who recommended checking additionally and ESR, but to continue to trend troponins and keep the patient on telemetry. Dr. Madera further recommended starting colchicine 0.6 mg twice daily and continuing this for at least 3 months. If the patient shows signs of fulminant disease, including hypotension and/or malignant arrhythmia, he should transferred to a center with an LVAD program which would include Kra[facility] and De[facility] Martell. Discharge Providers Provider Date of admission: 06/18/19 17:09 Discharge Date: 06/19/19 Discharge provider: Leobardo Skinner DO Summary Hospital Course Discharge Diagnosis: Please see discharge summary by problem list noed below. Hospital Course: Brad Anderson is a 24 year old male with no known PMH who presented to the emergency room with chest pain and shortness of breath. He was admitted under observation status for myopericarditis, his chest pain and dyspnea resolved in the ED. Troponin peaked at 15.9. There were no arrythmias on telemetry. 1. Myopericarditis, acute, present on admission -troponin peaked at 15.9 then downtrended x2. -echocardiogram: Left ventricular systolic function is mildly reduced with the ejection fraction visually estimated to be 40-45% with mild global hypokinesis but no obvious focal wall motion abnormalities . There is borderline concentric left ventricular hypertrophy. The right ventricle is normal in size and function. Pulmonary artery pressures cannot be estimated because of the lack of a measurable TR jet velocity but the IVC suggests a CVP of around 3 mmHg. Both atria are normal in size. There is mild mitral regurgitation but no other significant valvular heart disease. There is no pericardial effusion. -telemetry revealed no events overnight. -supportive care for viral syndrome. -started on colchicine 0.6 mg b.i.d., per Dr. Madera continue x3 months and further start medical therapy for heart failure with reduced ejection fraction with beta-rich and YOLETTE-inhibitor as tolerated. -Started with low-dose lisinopril at 2.5 mg, unable to start metoprolol prior to discharge with blood pressures. - CRP 5.6, on admission, ESR 11 checked after symptoms had resolved. -risk stratification labs were unremarkable. -rare etiologies of viral myopericarditis include hepatitis and HIV. All negative workup to date.viral panel was also negative on admission. -Patient to establish with Dr. Dunham upon discharge, first date available 07/02/2019, for blood pressure check, symptom check, and cardiology referral. He was provided with 90 day prescriptions for colchicine and lisinopril 2.5 mg. -Discussed with patient that he needs to avoid competitive sports and strenuous exercise for 3 months per AHA recommendations. 2. Viral syndrome, now resolved -continue supportive care, fluids were held given reduced ejection fraction and euvolemic appearance. Although patient was asymptomatic on admission. 3. Heart failure with reduced ejection fraction, likely acute, present on admission -continue care as noted above, heart failure is likely in the setting of myopericarditis. This usually resolves with above interventions. Patient will need outpatient follow-up with cardiology and repeat echocardiograms as an outpatient. -started on yolette-inhibitor as noted above. Recommended for beta rich but unable to start inpatient given low-normal BP. Reassess in clinic for initiation of beta rich as an outpatient. Status at Discharge Cognitive/behavioral status at discharge: oriented Overall status at discharge: patient is back to baseline Exam Vital Signs (past 8 hours): - 06/19/19 05:00 06/19/19 07:40 06/19/19 08:47 Temperature 97.1 F L 97.6 F Pulse Rate 73 86 Respiratory Rate 18 16 Blood Pressure 97/56 L 111/70 111/70 Pulse Oximetry 99 99 Oxygen Delivery Method Room Air Oxygen Flow Rate 0 Narrative Exam Narrative: GENERAL APPEARANCE: Well developed, well nourished, in no acute distress. SKIN: Inspection of the skin reveals no rashes, ulcerations or petechiae. HEENT: The sclerae were anicteric and conjunctivae were pink and moist. Extraocular movements were intact and pupils were equal, round with normal accommodation. External inspection of the ears and nose showed no scars, lesions, or masses. Lips, teeth, and gums showed normal mucosa. The oral mucosa, hard and soft palate, tongue and posterior pharynx were unremarkable. NECK: Supple and symmetric. There was no thyroid enlargement, and no tenderness, or masses were felt. CHEST: Normal AP diameter and normal contour without any kyphoscoliosis. LUNGS: Auscultation of the lungs revealed no wheezes, rhonchi, or rales. CARDIOVASCULAR: There was a regular rate and rhythm without any murmurs, gallops, rubs. Peripheral pulses were 2+ and symmetric. ABDOMEN: Soft and nontender with normal bowel sounds. No ascites was noted. MUSCULOSKELETAL: There was no tenderness or effusions noted. Muscle strength and tone were normal. EXTREMITIES: No cyanosis, clubbing or edema. NEUROLOGIC: Alert and oriented x 3. Normal affect. Strength is +5/5 in the Upper Extremities and Lower Extremities Bilaterally. Sensation to touch was normal. Objective Labs Result Diagrams: 06/19/19 03:00 06/19/19 03:00 Labs: Laboratory Results - last 24 hr 06/18/19 06/18/19 06/18/19 09:50 11:24 14:44 WBC RBC Hgb Hct MCV MCH MCHC RDW Plt Count Neut % (Auto) Lymph % (Auto) [place] % (Auto) Eos % (Auto) Baso % (Auto) Neut # (Auto) Lymph # (Auto) [place] # (Auto) Eos # (Auto) Baso # (Auto) ESR Sodium Potassium Chloride Carbon Dioxide BUN Creatinine Estimated GFR BUN/Creatinine Ratio Glucose Hemoglobin A1c Lactate 1.5 Calcium Magnesium Troponin I 15.900 H* Triglycerides Cholesterol LDL Cholesterol, Calc HDL Cholesterol TSH Free T4 Chlamy pneumoniae PCR Not detected Adenovirus (PCR) Not detected B.parapertussis DNA PCR Not detected Coronavirus OC43 (PCR) Not detected Coronavirus HKU1 (PCR) Not detected Coronavirus 229E (PCR) Not detected Coronavirus NL63 (PCR) Not detected Hep Bs Antigen Hepatitis C Antibody HIV 1&2 Ab/P24 Ag 4thGn Human Metapneumovir PCR Not detected Influenza Type A (PCR) Not detected Influenza Type B (PCR) Not detected M. pneumoniae (PCR) Not detected Parainfluenza 1 (PCR) Not detected Parainfluenza 2 (PCR) Not detected Parainfluenza 3 (PCR) Not detected Parainfluenza 4 (PCR) Not detected RSV (PCR) Not detected Entero/Rhino (PCR) Not detected 06/18/19 06/18/19 06/19/19 18:14 20:54 03:00 WBC 5.5 RBC 5.20 Hgb 15.0 Hct 43.1 MCV 82.9 MCH 28.9 MCHC 34.9 RDW 13.3 Plt Count 202 Neut % (Auto) 59.2 Lymph % (Auto) 29.0 [place] % (Auto) 10.3 Eos % (Auto) 0.9 L Baso % (Auto) 0.6 Neut # (Auto) 3200 Lymph # (Auto) 1600 [place] # (Auto) 600 Eos # (Auto) 0 Baso # (Auto) 0 ESR 11 Sodium Potassium Chloride Carbon Dioxide BUN Creatinine Estimated GFR BUN/Creatinine Ratio Glucose Hemoglobin A1c Lactate Calcium Magnesium Troponin I 10.200 H* Triglycerides Cholesterol LDL Cholesterol, Calc HDL Cholesterol TSH Free T4 Chlamy pneumoniae PCR Adenovirus (PCR) B.parapertussis DNA PCR Coronavirus OC43 (PCR) Coronavirus HKU1 (PCR) Coronavirus 229E (PCR) Coronavirus NL63 (PCR) Hep Bs Antigen Hepatitis C Antibody HIV 1&2 Ab/P24 Ag 4thGn Human Metapneumovir PCR Influenza Type A (PCR) Influenza Type B (PCR) M. pneumoniae (PCR) Parainfluenza 1 (PCR) Parainfluenza 2 (PCR) Parainfluenza 3 (PCR) Parainfluenza 4 (PCR) RSV (PCR) Entero/Rhino (PCR) 06/19/19 06/19/19 06/19/19 03:00 03:00 03:00 WBC RBC Hgb Hct MCV MCH MCHC RDW Plt Count Neut % (Auto) Lymph % (Auto) [place] % (Auto) Eos % (Auto) Baso % (Auto) Neut # (Auto) Lymph # (Auto) [place] # (Auto) Eos # (Auto) Baso # (Auto) ESR Sodium 139 Potassium 3.9 Chloride 102 Carbon Dioxide 28 BUN 10 Creatinine 0.90 Estimated GFR > 60.0 BUN/Creatinine Ratio 11.1 Glucose 90 Hemoglobin A1c 4.9 Lactate Calcium 9.4 Magnesium 2.3 Troponin I 6.210 H* Triglycerides Cholesterol LDL Cholesterol, Calc HDL Cholesterol TSH Free T4 Chlamy pneumoniae PCR Adenovirus (PCR) B.parapertussis DNA PCR Coronavirus OC43 (PCR) Coronavirus HKU1 (PCR) Coronavirus 229E (PCR) Coronavirus NL63 (PCR) Hep Bs Antigen Hepatitis C Antibody HIV 1&2 Ab/P24 Ag 4thGn Human Metapneumovir PCR Influenza Type A (PCR) Influenza Type B (PCR) M. pneumoniae (PCR) Parainfluenza 1 (PCR) Parainfluenza 2 (PCR) Parainfluenza 3 (PCR) Parainfluenza 4 (PCR) RSV (PCR) Entero/Rhino (PCR) 06/19/19 06/19/19 06/19/19 03:00 03:00 03:00 WBC RBC Hgb Hct MCV MCH MCHC RDW Plt Count Neut % (Auto) Lymph % (Auto) [place] % (Auto) Eos % (Auto) Baso % (Auto) Neut # (Auto) Lymph # (Auto) [place] # (Auto) Eos # (Auto) Baso # (Auto) ESR Sodium Potassium Chloride Carbon Dioxide BUN Creatinine Estimated GFR BUN/Creatinine Ratio Glucose Hemoglobin A1c Lactate Calcium Magnesium Troponin I Triglycerides 141 Cholesterol 141 LDL Cholesterol, Calc 94 HDL Cholesterol 19 L TSH 6.07 H Free T4 1.14 Chlamy pneumoniae PCR Adenovirus (PCR) B.parapertussis DNA PCR Coronavirus OC43 (PCR) Coronavirus HKU1 (PCR) Coronavirus 229E (PCR) Coronavirus NL63 (PCR) Hep Bs Antigen Negative Hepatitis C Antibody Negative HIV 1&2 Ab/P24 Ag 4thGn Human Metapneumovir PCR Influenza Type A (PCR) Influenza Type B (PCR) M. pneumoniae (PCR) Parainfluenza 1 (PCR) Parainfluenza 2 (PCR) Parainfluenza 3 (PCR) Parainfluenza 4 (PCR) RSV (PCR) Entero/Rhino (PCR) 06/19/19 03:00 WBC RBC Hgb Hct MCV MCH MCHC RDW Plt Count Neut % (Auto) Lymph % (Auto) [place] % (Auto) Eos % (Auto) Baso % (Auto) Neut # (Auto) Lymph # (Auto) [place] # (Auto) Eos # (Auto) Baso # (Auto) ESR Sodium Potassium Chloride Carbon Dioxide BUN Creatinine Estimated GFR BUN/Creatinine Ratio Glucose Hemoglobin A1c Lactate Calcium Magnesium Troponin I Triglycerides Cholesterol LDL Cholesterol, Calc HDL Cholesterol TSH Free T4 Chlamy pneumoniae PCR Adenovirus (PCR) B.parapertussis DNA PCR Coronavirus OC43 (PCR) Coronavirus HKU1 (PCR) Coronavirus 229E (PCR) Coronavirus NL63 (PCR) Hep Bs Antigen Hepatitis C Antibody HIV 1&2 Ab/P24 Ag 4thGn Negative Human Metapneumovir PCR Influenza Type A (PCR) Influenza Type B (PCR) M. pneumoniae (PCR) Parainfluenza 1 (PCR) Parainfluenza 2 (PCR) Parainfluenza 3 (PCR) Parainfluenza 4 (PCR) RSV (PCR) Entero/Rhino (PCR) Discharge Plan Discharge Plan Patient Disposition: Home Discharge comment: You were admitted to the hospital for likely a viral infection that went into your heart muscle and the layer surrounding your heart. This condition is called myopericarditis. Per the garnett mechanic, you should take colchicine for at least 3 months. This prescription was sent to her pharmacy. You also need to start taking two medicines to protect your heart after your echocardiogram showed that your function was slightly reduced. You should follow-up with your primary care provider, as only 1 of these patients was able to be started because of your blood pressures here being on the low side. Your primary care provider should add metoprolol if you are able to tolerate this. You also should follow-up with a garnett mechanic, who will likely need a repeat ultrasound. Should you have any problems with dizziness, or developed chest pain or pressure again please do not hesitate to call a medical provider to see if you should return to the emergency room. Discharge orders & Medications Prescriptions: New colchicine 0.6 mg capsule 0.6 mg PO BID 90 Days Qty: 180 RF: 0 colchicine 0.6 mg capsule 0.6 mg PO BID 90 Days Qty: 180 RF: 0 lisinopril 2.5 mg tablet 2.5 mg PO DAILY 90 Days Qty: 90 RF: 0 Discharge Health Status Health Concerns: Myopericarditis Diet/Activity/Treatments Diet: Diet as Tolerated and Low-sodium Activity: As tolerated, no heavy exercise. Visit Report/Discharge Packet Instructions: DI for Pericarditis, Colchicine, Lisinopril (By mouth) Discharge Data Attending Provider: Leobardo Skinner Admit Date/Time: 06/18/19 17:09 Discharges patient from system. Discharge Date/Time: 06/19/19 11:49 Quality VTE Deep Vein Thrombosis/Pulmonary Embolism Present on Admission: No
--- NOTE | 2019-06-19 11:44 | PC.NURSE ---
Pt discharged via wheelchair to [facility] with family and all belongings. Instructions provided on s/sx of stroke (sudden numbness, weakness, dizziness) and to call 911, diet and exercise recommendations (low salt, no vigorous exercise), to follow up with PCP and cardiology and to call 911 for any new or worsening symptoms. New meds colchesin and lisinopril reviewed, prescriptions sent to [facility]. pt indicated no further questions or concerns. reviewed by Shira THAYER
[2019-06-23 14:38] LABS: Hepatitis B Core Antibody Nonreactive (Nonreactive)
[2019-06-23 15:13] LABS: Hepatitis B Surf Ab Qualitativ Nonreactive (Nonreactive)
== END 2019-06-19 11:49 | disposition home or self-care (01) ==
LOC: ED 17:01 → AC 06-19 07:53
PROVIDERS: Admitting Provider Internal Medicine; Emergency Provider Emergency Medicine; Family Provider Pediatrics; Referring Provider Emergency Medicine; Visit Provider Internal Medicine
DX: I31.9 Disease of pericardium, unspecified (principal); R07.9 Chest pain, unspecified; B34.9 Viral infection, unspecified; I50.9 Heart failure, unspecified
CPT/HCPCS: 36415; 71046; 80048; 80053; 80061; 82550; 82553; 83036; 83605; 83690; 83735; 84145; 84439; 84443; 84484; 85025; 85610; 85651; 85730; 86140; 86704; 86706; 86803; 87040; 87340; 87389; 87633; 93005; 93010; 93306; 96360; 96361; 99285; G0378

== ENCOUNTER → 2019-09-18 14:00 | Outpatient (CLI) | payer OTHER, SELFPAY ==
[2019-06-18 18:36] VITALS: BMI 30.4
[2019-09-18 15:39] LABS: Erythrocyte Sedimentation Rate 1 MM/HR (0-15)
[2019-09-18 16:15] LABS: C-Reactive Protein Quant < 0.5 mg/dL (<1.0)
== END ==
PROVIDERS: Family Provider Pediatrics; PCP Internal Medicine; Referring Provider Internal Medicine Cardiovascular Disease; Visit Provider Internal Medicine Cardiovascular Disease
DX: I31.9 Disease of pericardium, unspecified (principal)
CPT/HCPCS: 36415; 85651; 86140

== ENCOUNTER → 2019-10-07 15:44 | Outpatient (CLI) | payer OTHER, SELFPAY ==
[2019-06-18 18:36] VITALS: BMI 30.4
--- NOTE | 2019-10-07 16:14 | DI.ECHO.S_ITS ---
Echocardiogram Report + + :Name: CHARLENE RILEY Study Date: 10/07/2019 Height: 68 in : :[facility] Weight: 195 lb : : Gender: Male BSA: 2.0 m2 : :: 1995 Age: 24 yrs BP: 120/82 mmHg: :Reason For Study: ACUTE PERICARDITIS : : Performed By: Jackson Banuelos : :Referring: PRETTY MARCELO : + + Interpretation Summary 1) Normal left ventricular size, thickness, wall motion, and systolic function (EF 55-60%). 2) Upper normal right ventricular size and function. 3) No significant valvular abnormalities. 4) There is no pericardial effusion. 5) Compared to the Echo done 06/18/2019, no significant change. Procedure: A two-dimensional transthoracic echocardiogram with color flow and Doppler was performed. The study quality was technically good. Comparison is made with the echocardiogram of 06/18/19. The patient was in normal sinus rhythm during the exam. Left Ventricle: The left ventricle is normal in size. There is normal left ventricular wall thickness. The ejection fraction is estimated to be 55-60%. There are no focal wall motion abnormalities. Right Ventricle: The right ventricle is at the upper limits of normal in size. The right ventricular systolic function is normal. Atria: Both atria are normal in size. The interatrial septum is intact with no evidence for an atrial septal defect. Mitral Valve: The mitral valve is normal in structure and function. There is no mitral regurgitation noted. Aortic Valve: The aortic valve is trileaflet. The aortic valve opens well. There is no aortic valve stenosis. No aortic regurgitation is present. Tricuspid Valve: The tricuspid valve is normal in structure and function. No tricuspid regurgitation. Pulmonic Valve: The pulmonic valve is normal in structure and function. There is trace pulmonic regurgitation. Great Vessels: The aortic root is normal size. The dimensions of the ascending aorta are normal. The pulmonary artery is normal size. The IVC is of normal diameter and collapses greater than 50% with a sniff. This suggests a low right atrial pressure of 3 mm Hg. Pericardium/ Pleura There is no pericardial effusion. There is no pleural effusion. MMode/2D Measurements & Calculations LVIDd: 5.1 cm LVOT diam: 2.2 cm LVIDs: 3.8 cm Ao root diam: 2.9 cm FS: 26.9 % asc Aorta Diam: 3.3 cm EPSS: 0.54 cm IVSd: 0.89 cm LVPWd: 0.74 cm LV faria. diameter/BSA (cm/m^2): 2.5 LV sys. diameter/BSA (cm/m^2): 1.9 LA dimension: 4.1 cm RA long axis: 4.5 cm LA A2 area: 19.7 cm2 RA area: 18.2 cm2 LA A4 area: 22.1 cm2 RA vol: 62.4 ml LA length (vol): 5.7 cm RA : 30.8 ml/m2 LA vol: 64.3 ml IVC diam: 1.4 cm LA vol index: 31.8 ml/m2 RVD1 (basal): 4.0 cm RVD2 (mid): 4.8 cm TAPSE: 2.5 cm Doppler Measurements & Calculations Ao V2 max: 132.9 cm/sec LVOT Max Howard: 102.8 cm/sec Ao V2 mean: 100.8 cm/sec LV V1 max P.2 mmHg Ao max P.1 mmHg LV V1 VTI: 19.9 cm Ao mean P.3 mmHg LATA(I,D): 2.8 cm2 Ao V2 VTI: 26.5 cm LATA(V,D): 2.9 cm2 sev ratio: 0.75 LATA indexed to BSA (cm^2/m^2): 1.4 MV E max howard: 66.5 cm/sec PA V2 max: 91.8 cm/sec MV A max howard: 56.4 cm/sec PA V2 mean: 69.9 cm/sec MV E/A: 1.2 PA mean P.1 mmHg Med Peak E' Howard: 9.8 cm/sec PA pr(Accel): 22.5 mmHg E/E' med: 6.8 Lat Peak E' Howard: 10.8 cm/sec E/E' lat: 6.1 E/e' average: 6.5 MV dec time: 0.20 sec SV(LVOT): 74.8 ml Reading Physician:09:30 AM
== END ==
PROVIDERS: Family Provider Pediatrics; PCP Internal Medicine; Referring Provider Internal Medicine; Visit Provider Internal Medicine
DX: I30.9 Acute pericarditis, unspecified (principal)
CPT/HCPCS: 93306

== ENCOUNTER → 2019-10-09 15:28 | Outpatient (CLI) | payer OTHER, SELFPAY ==
[2019-06-18 18:36] VITALS: BMI 30.4
--- NOTE | 2019-10-09 15:34 | DI.RAD.S_ITS ---
PROCEDURE: XR HAND RT MIN 3V INDICATIONS: finger pain TECHNIQUE: 3 views of the hand(s) acquired. COMPARISON: None. FINDINGS: Bones: No fractures or dislocations. Carpal bones are normally aligned. No suspicious bony lesions. Soft tissues: No suspicious soft tissue calcifications. IMPRESSION: Unremarkable examination. If the patient's pain or other symptoms persist, consider further evaluation with MRI Dictated by: Rob Rashid M.D. on 10/09/2019 at 15:49 Approved by: Rob Rashid M.D. on 10/09/2019 at 15:51
== END ==
PROVIDERS: Family Provider Pediatrics; PCP Internal Medicine; Referring Provider Physician Assistant; Visit Provider Physician Assistant
DX: M79.644 Pain in right finger(s) (principal)
CPT/HCPCS: 73130

== ENCOUNTER 2020-06-22 20:24 | Emergency (ER) | payer OTHER, SELFPAY ==
[2019-06-18 18:36] VITALS: BMI 30.4
[2020-06-22 20:30] VITALS: BP 146/92; PULSE 85; RESP 12; TEMP 37.1; O2SAT 99; BMI 29.5
[2020-06-22 20:32] VITALS: PULSE 85; RESP 12; O2SAT 98
[2020-06-22 20:33] VITALS: BP 146/92; PULSE 86; RESP 12; O2SAT 100
--- NOTE | 2020-06-22 20:38 | DI.RAD.S_ITS ---
PROCEDURE: XR CHEST 1V INDICATIONS: chest pain TECHNIQUE: One view of the chest was acquired. COMPARISON: [facility], CR, XR CHEST 2V, 06/18/2019, 10:02. FINDINGS: Surgical changes and devices: None. Lungs and pleura: Lungs are clear. No pleural effusions or pneumothorax. Mediastinum: Mediastinal contours appear normal. Heart size is normal. Bones and chest wall: No suspicious bony lesions. Overlying soft tissues appear unremarkable. IMPRESSION: No acute process. Dictated by: Agusto Pope M.D. on 06/22/2020 at 20:57 Approved by: Agusto Pope M.D. on 06/22/2020 at 20:57
[2020-06-22 20:44] VITALS: BP 145/84; PULSE 86; RESP 23; O2SAT 99
[2020-06-22 21:02] LABS: Add Manual Diff / Slide Review NO; Basophils Absolute Auto 0 /uL (0-100); Basophils Percent Auto 0.3 % (0-2); Eosinophils Absolute Auto 0 /uL (0-450); Eosinophils Percent Auto 0.6 % (2-4); Hematocrit 46.6 % (41-53); Hemoglobin 16.3 g/dL (13.5-17.5); Lymphocytes Absolute Auto 2100 /uL (1100-4500); Lymphocytes Percent Auto 26.4 % (25-40); Mean Corpuscular Hemoglobin 29.4 PG (26-34); Mean Corpuscular Volume 84.1 fL (80-100); Monocytes Absolute Auto 700 /uL (0-900); Monocytes Percent Auto 8.5 % (3-14); Neutrophils Absolute Auto 5000 /uL (1500-7000); Neutrophils Percent Auto 64.2 % (50-75); Platelet Count 221 X10^3/uL (150-400); Red Blood Cell Count 5.54 X10^6/uL (4.5-5.9); Red Cell Distribution Width 13.3 % (11.6-14.8); White Blood Cell Count 7.9 X10^3/uL (4.5-11.0)
[2020-06-22 21:04] LABS: Prothrombin Time 11.5 SECONDS (10.1-12.7)
--- NOTE | 2020-06-22 21:06 | ED_ITS ---
HPI - Chest Pain General Chief Complaint: Chest Pain Stated Complaint: chest discomfort, nausea Time Seen by Provider: 06/22/20 20:38 Source: patient Mode of arrival: Ambulatory Limitations: no limitations History of Present Illness HPI narrative: Patient is a 25-year-old male here for evaluation of approximately 4 days of some chest discomfort and nausea generally not feeling very well. He states that the symptoms occurred when he was skiing this past weekend. He thinks that his symptoms actually have improved somewhat since the onset however about 1 year ago he was admitted to the hospital was diagnosed wi th pericarditis/myocarditis any thought that potentially the symptoms felt similar to that. Has not tried anything for symptoms prior to. Related Data Home Medications Medication Instructions Recorded Confirmed No Known Home Medications 10/09/19 10/09/19 Allergies Allergy/AdvReac Type Severity Reaction Status Date / Time No Known Drug Allergies Allergy Verified 06/22/20 20:35 Review of Systems Constitutional Constitutional: Reports fatigue, Denies headache(s) and Reports malaise ENT Ears, Nose, Mouth, and Throat: Denies headache(s) Cardiovascular Cardiovascular: Reports chest pain and Reports dyspnea Respiratory Respiratory: Reports dyspnea Gastrointestinal Gastrointestinal: Denies abdominal pain, Denies change in bowel habits and Reports nausea Genitourinary Genitourinary: Denies dysuria Genitourinary: Denies dysuria Musculoskeletal Musculoskeletal: Denies myalgias Integumentary/Breasts Skin/Breast: Denies rash Neurologic Neurologic: Denies behavioral changes and Denies headache(s) Psychiatric Psychiatric: Denies behavioral changes Endocrine Endocrine: Reports fatigue Hematologic/Lymphatic On Anticoagulants: No Allergic/Immunologic Allergic/Immunologic: Denies urticaria Patient History Medical History Viral syndrome Social History household members: family Smoking Status: Former smoker Smoking Status: Former smoker alcohol intake frequency: holidays/special occasions only Substance Use Type: does not use and marijuana Exam Initial Vital Signs Initial Vital Signs: Vital Signs Temperature 98.7 F 06/22/20 20:30 Pulse Rate 85 06/22/20 20:30 Respiratory Rate 12 06/22/20 20:30 Blood Pressure 146/92 H 06/22/20 20:30 Pulse Oximetry 99 06/22/20 20:30 Const General: cooperative and comfortable Limitations: mental status not altered HENMT Head: normal to inspection and normocephalic Resp Effort & Inspection: normal respiratory effort Auscultation: clear to auscultation bilaterally Cardio Rate: regular rate Rhythm: regular rhythm Heart Sounds: no rubs GI Inspection: non-distended Palpation: soft Skin Lesions: no lesions Rashes: no rashes Neuro General: patient alert and patient awake Cognition: normal cognition Speech: speech normal Extrem General: normal to inspection and capillary refill normal Psych Appearance: grossly normal and well kempt Course Orders Ordered: ED Orders 06/22/20 20:38 XR chest 1V Stat EKG-12 Lead Stat 06/22/20 20:43 CRP [C-Reactive Protein Quant] Stat Complete Blood Count AUTO DIFF Stat Comprehensive Metabolic Panel Stat Erythrocyte Sedimentation Rate Stat Lipase Stat Partial Thromboplastin Time Stat Prothrombin Time INR Stat Troponin & CK Cardiac Panel Stat Vital Signs Vital signs: Vital Signs - 8 hr 06/22/20 20:30 06/22/20 20:32 06/22/20 20:33 Temperature 98.7 F Pulse Rate 85 85 86 Respiratory Rate 12 12 12 Blood Pressure 146/92 H 146/92 H Pulse Oximetry 99 98 100 06/22/20 20:44 06/22/20 21:47 Temperature Pulse Rate 86 81 Respiratory Rate 23 18 Blood Pressure 145/84 H 136/72 Pulse Oximetry 99 97 MDM - Chest Pain Medical Records Data Attestation: I reviewed the patient's medical records. Lab Data Attestation: I reviewed the patient's lab results. Result diagrams: 06/22/20 20:43 06/22/20 20:43 Labs: Lab Results 06/22/20 06/22/20 06/22/20 Range/Units 20:43 20:43 20:43 WBC 7.9 (4.5-11.0) X10^3/uL RBC 5.54 (4.5-5.9) X10^6/uL Hgb 16.3 (13.5-17.5) g/dL Hct 46.6 (41-53) % MCV 84.1 (80-100) fL MCH 29.4 (26-34) PG MCHC 35.0 (30-36) % RDW 13.3 (11.6-14.8) % Plt Count 221 (150-400) X10^3/uL Neut % (Auto) 64.2 (50-75) % Lymph % (Auto) 26.4 (25-40) % Faulkner % (Auto) 8.5 (3-14) % Eos % (Auto) 0.6 L (2-4) % Baso % (Auto) 0.3 (0-2) % Neut # (Auto) 5000 (2711-6992) /uL Lymph # (Auto) 2100 (6257-8645) /uL Faulkner # (Auto) 700 (0-900) /uL Eos # (Auto) 0 (0-450) /uL Baso # (Auto) 0 (0-100) /uL ESR (0-15) MM/HR PT 11.5 (10.1-12.7) SECONDS INR 1.0 (0.9-1.3) APTT 34 D (26.4-36.2) SECONDS Sodium 139 (137-145) mmol/L Potassium 4.2 (3.4-5.1) mmol/L Chloride 105 (98-107) mmol/L Carbon Dioxide 26 (22-32) mmol/L BUN 16 (9-20) mg/dL Creatinine 1.01 (0.66-1.25) mg/dL Estimated GFR > 60.0 (>60) mL/min BUN/Creatinine Ratio 15.8 (6-22) Glucose 108 H (70-100) mg/dL Calcium 9.7 (8.4-10.2) mg/dL Total Bilirubin 0.8 (0.2-1.3) mg/dL AST 30 (17-59) IU/L ALT 39 (<50) IU/L Alkaline Phosphatase 70 (38-126) U/L Total Creatine Kinase 84 (55-170) U/L CK-MB (CK-2) TNP CK-MB (CK-2) Rel Index TNP Troponin I < 0.012 (0.01-0.034) ng/mL C-Reactive Protein (<1.0) mg/dL Total Protein 8.5 H (6.3-8.2) g/dL Albumin 5.0 (3.5-5.0) g/dL Globulin 3.5 (1.7-4.1) g/dL Albumin/Globulin Ratio 1.4 (1.0-2.8) Lipase 73 (23-300) U/L 03/10/21 03/10/21 Range/Units 20:43 20:43 WBC (4.5-11.0) X10^3/uL RBC (4.5-5.9) X10^6/uL Hgb (13.5-17.5) g/dL Hct (41-53) % MCV (80-100) fL MCH (26-34) PG MCHC (30-36) % RDW (11.6-14.8) % Plt Count (150-400) X10^3/uL Neut % (Auto) (50-75) % Lymph % (Auto) (25-40) % Faulkner % (Auto) (3-14) % Eos % (Auto) (2-4) % Baso % (Auto) (0-2) % Neut # (Auto) (4424-5404) /uL Lymph # (Auto) (2199-4748) /uL Faulkner # (Auto) (0-900) /uL Eos # (Auto) (0-450) /uL Baso # (Auto) (0-100) /uL ESR 1 (0-15) MM/HR PT (10.1-12.7) SECONDS INR (0.9-1.3) APTT (26.4-36.2) SECONDS Sodium (137-145) mmol/L Potassium (3.4-5.1) mmol/L Chloride (98-107) mmol/L Carbon Dioxide (22-32) mmol/L BUN (9-20) mg/dL Creatinine (0.66-1.25) mg/dL Estimated GFR (>60) mL/min BUN/Creatinine Ratio (6-22) Glucose (70-100) mg/dL Calcium (8.4-10.2) mg/dL Total Bilirubin (0.2-1.3) mg/dL AST (17-59) IU/L ALT (<50) IU/L Alkaline Phosphatase (38-126) U/L Total Creatine Kinase (55-170) U/L CK-MB (CK-2) CK-MB (CK-2) Rel Index Troponin I (0.01-0.034) ng/mL C-Reactive Protein < 0.5 (<1.0) mg/dL Total Protein (6.3-8.2) g/dL Albumin (3.5-5.0) g/dL Globulin (1.7-4.1) g/dL Albumin/Globulin Ratio (1.0-2.8) Lipase (23-300) U/L Imaging Data Chest x-ray: Radiologist's Impression: [facility] [place] [id number] ReportSigned Patient: Brad Anderson WMR#: [id number]: 1995Acct:[id number]/Sex: 25 / MDate of Service: 06/22/20Loc: EDAccession Number: [id number] Procedure: XR chest 1V Ordering Provider: Tato Arellano D.O. PROCEDURE: XR CHEST 1V INDICATIONS: chest pain TECHNIQUE: One view of the chest was acquired. COMPARISON: [facility], , XR CHEST 2V, 06/18/2019, 10:02. FINDINGS: Surgical changes and devices: None. Lungs and pleura: Lungs are clear. No pleural effusions or pneumothorax. Mediastinum: Mediastinal contours appear normal. Heart size is normal. Bones and chest wall: No suspicious bony lesions. Overlying soft tissues appear unremarkable. IMPRESSION: No acute process. Dictated by: Agusto Pope M.D. on 06/22/2020 at 20:57 Approved by: Agusto Pope M.D. on 06/22/2020 at 20:57 ECG Data Attestation: I personally reviewed and interpreted this ECG as follows: Prior ECG tracings: not available for review Interpretation: Sinus rhythm Ventricular rate 87 Normal axis Normal QRS Normal QTC No ST T wave changes MDM Narrative Medical decision making narrative: Patient axilla reports improvement of his symptoms since the onset a couple days ago. His troponin is negative, chest x- ray is negative, EKG is unremarkable, ESR and CRP are both unremarkable. Low suspicion for pericarditis/myocarditis today. No indication for antibiotics. Patient was reassured by this discussion and stated that he was comfortable going home knowing this. He was given return precautions and follow-up instructions. He expressed understanding and agreement. Discharge Plan Departure Patient Disposition: Home Clinical Impression: Atypical chest pain, Malaise Instructions: DI for Atypical Chest Pain Activity Restrictions/Additional Instructions: Your workup here in the emergency department is very reassuring. He can take Tylenol and/or ibuprofen for any fatigue or body aches. Contact your primary provider for follow-up. Return to the emergency department for any new or worsening symptoms Prescriptions: No Action No Known Home Medications RF: 0 Referrals: Rich Dunham MD [Primary Care Provider] -
[2020-06-22 21:07] LABS: PTT Partial Thromboplastin Tim 34 SECONDS (26.4-36.2)
[2020-06-22 21:12] LABS: Alanine Aminotransferase 39 IU/L (<50); Albumin Globulin Ratio 1.4 (1.0-2.8); Alkaline Phosphatase 70 U/L (38-126); Aspartate Aminotransferase 30 IU/L (17-59); BUN Creatinine Ratio 15.8 (6-22); Bilirubin Total 0.8 mg/dL (0.2-1.3); Blood Urea Nitrogen 16 mg/dL (9-20); Calcium 9.7 mg/dL (8.4-10.2); Carbon Dioxide 26 mmol/L (22-32); Chloride 105 mmol/L (98-107); Creatine Kinase 84 U/L (55-170); Estimated Glomerular Filt Rate > 60.0 mL/min (>60); Globulin 3.5 g/dL (1.7-4.1); Glucose 108 mg/dL (70-100); HEMOLYSIS 36 (0-50); Lipase 73 U/L (23-300); Potassium 4.2 mmol/L (3.4-5.1); Sodium 139 mmol/L (137-145); Total Protein 8.5 g/dL (6.3-8.2)
[2020-06-22 21:15] LABS: C-Reactive Protein Quant < 0.5 mg/dL (<1.0)
[2020-06-22 21:24] LABS: Troponin I < 0.012 ng/mL (0.01-0.034)
[2020-06-22 21:26] LABS: Erythrocyte Sedimentation Rate 1 MM/HR (0-15)
[2020-06-22 21:47] VITALS: BP 136/72; PULSE 81; RESP 18; O2SAT 97
== END 2020-06-22 21:48 | disposition home or self-care (01) ==
PROVIDERS: Emergency Provider Emergency Medicine; Family Provider Pediatrics; PCP Internal Medicine
DX: R07.89 Other chest pain (principal); R53.81 Other malaise; R11.0 Nausea; R06.00 Dyspnea, unspecified
CPT/HCPCS: 36415; 71045; 80053; 82550; 83690; 84484; 85025; 85610; 85651; 85730; 86140; 93005; 99283; 99284

== ENCOUNTER → 2023-04-18 09:20 | Outpatient (CLI) | payer OTHER, SELFPAY ==
[2019-06-18 18:36] VITALS: BMI 30.4
[2023-04-18 10:23] LABS: Add Manual Diff / Slide Review NO; Basophils Absolute Auto 0 /uL (0-100); Basophils Percent Auto 0.4 % (0-2); Eosinophils Absolute Auto 0 /uL (0-450); Eosinophils Percent Auto 0.6 % (2-4); Hematocrit 45.9 % (41-53); Hemoglobin 16.2 g/dL (13.5-17.5); Lymphocytes Absolute Auto 1300 /uL (1100-4500); Lymphocytes Percent Auto 18.5 % (25-40); Mean Corpuscular HGB Conc 35.3 % (30-36); Mean Corpuscular Hemoglobin 29.1 PG (26-34); Mean Corpuscular Volume 82.4 fL (80-100); Monocytes Absolute Auto 600 /uL (0-900); Monocytes Percent Auto 7.8 % (3-14); Neutrophils Absolute Auto 5300 /uL (1500-7000); Neutrophils Percent Auto 72.7 % (50-75); Platelet Count 228 X10^3/uL (150-400); Red Blood Cell Count 5.57 X10^6/uL (4.5-5.9); Red Cell Distribution Width 13.3 % (11.6-14.8); White Blood Cell Count 7.2 X10^3/uL (4.5-11.0)
[2023-04-18 11:33] LABS: Alanine Aminotransferase 67 IU/L (<50); Albumin 5.1 g/dL (3.5-5.0); Albumin Globulin Ratio 1.3 (1.0-2.8); Alkaline Phosphatase 83 U/L (38-126); BUN Creatinine Ratio 20.8 (6-22); Bilirubin Total 1.6 mg/dL (0.2-1.3); Blood Urea Nitrogen 16 mg/dL (9-20); Calcium 10.1 mg/dL (8.4-10.2); Carbon Dioxide 24 mmol/L (22-32); Chloride 101 mmol/L (98-107); Cholesterol 217 mg/dL (140-199); Estimated Glomerular Filt Rate > 60 mL/min (>60); Globulin 3.9 g/dL (1.7-4.1); Glucose 107 mg/dL (70-100); HDL Cholesterol 28 mg/dL (40-60); HEMOLYSIS < 15 (0-50); Potassium 4.2 mmol/L (3.4-5.1); Sodium 137 mmol/L (137-145); Triglycerides 484 mg/dL (35-150)
[2023-04-18 20:12] LABS: HIV 1 & 2 Ab/Ag 4th Gen Combo NEGATIVE (NEGATIVE)
[2023-04-19 03:10] LABS: Hepatitis BE Antigen Negative (Negative)
[2023-04-19 14:58] LABS: Aspartate Aminotransferase 44 IU/L (17-59)
[2023-04-19 18:22] LABS: Hep C Virus Ab w/Reflex Quant NEGATIVE s/c (NEGATIVE)
== END ==
PROVIDERS: Family Provider Pediatrics; PCP Family Medicine; Referring Provider Family Medicine; Visit Provider Family Medicine
DX: E78.5 Hyperlipidemia, unspecified (principal); I10 Essential (primary) hypertension; I31.9 Disease of pericardium, unspecified; I51.4 Myocarditis, unspecified
CPT/HCPCS: 36415; 80053; 80061; 84443; 85025; 86803; 87350; 87389

== ENCOUNTER → 2023-07-02 09:44 | Outpatient (CLI) | payer OTHER, SELFPAY ==
[2019-06-18 18:36] VITALS: BMI 30.4
[2023-07-02 11:50] LABS: HIV 1 & 2 Ab/Ag 4th Gen Combo NEGATIVE (NEGATIVE); Hep C Virus Ab w/Reflex Quant NEGATIVE s/c (NEGATIVE)
[2023-07-02 11:54] LABS: Alanine Aminotransferase 49 IU/L (<50); Albumin 4.5 g/dL (3.5-5.0); Albumin Globulin Ratio 1.3 (1.0-2.8); Alkaline Phosphatase 78 U/L (38-126); Aspartate Aminotransferase 37 IU/L (17-59); BUN Creatinine Ratio 14.7 (6-22); Bilirubin Total 0.8 mg/dL (0.2-1.3); Blood Urea Nitrogen 11 mg/dL (9-20); Carbon Dioxide 28 mmol/L (22-32); Chloride 102 mmol/L (98-107); Estimated Glomerular Filt Rate > 60 mL/min (>60); Globulin 3.4 g/dL (1.7-4.1); Glucose 114 mg/dL (70-100); HEMOLYSIS 20 (0-50); Potassium 4.9 mmol/L (3.4-5.1); Sodium 139 mmol/L (137-145); Total Protein 7.9 g/dL (6.3-8.2)
[2023-07-04 03:12] LABS: Hepatitis BE Antigen Negative (Negative)
== END ==
LOC: LAB 09:45
PROVIDERS: Family Provider Pediatrics; PCP Family Medicine; Referring Provider Family Medicine; Visit Provider Family Medicine
DX: T14.8XXA Other injury of unspecified body region, initial encounter (principal); R74.8 Abnormal levels of other serum enzymes
CPT/HCPCS: 36415; 80053; 86803; 87350; 87389

== ENCOUNTER → 2023-07-24 07:08 | Outpatient (CLI) | payer OTHER, SELFPAY ==
[2019-06-18 18:36] VITALS: BMI 30.4
--- NOTE | 2023-07-24 07:08 | DI.ECHO.S_ITS ---
[facility]---------+ [facility] +---------+ : : [address] : : : : [id number] : : : : Phone: [phone]+ Echocardiogram Report + + :Name: CHARLENE RILEY Study Date: 07/24/2023 Height: 69 in : :[facility] ReadingLocation: Weight: 200 lb : : Gender: Male BSA: 2.1 m2 : :: 1995 Age: 28 yrs BP: 117/80 mmHg: :Reason For Study: HYPERTENSION : :Ordering Physician: VALENTIN, : :GLENN Polanco Performed By: Meena Brown : :Referring: GLENN HANSON : + + Interpretation Summary The left ventricle is normal in size and wall thickness. Left ventricular systolic function appears normal without focal wall motion abnormalities. The ejection fraction is estimated to be 55-60%. Diastolic parameters suggest probable normal left ventricular diastolic function and normal filling pressures. The right ventricle is normal in size and function. The left atrial size is normal. There is no significant valvular heart disease. The aortic root is normal size. Procedure: A two-dimensional transthoracic echocardiogram with color flow and Doppler was performed. The study quality was technically adequate. Comparison is made with the echocardiogram of 10/07/2019. The patient was in sinus rhythm with heart rates between 66-81 bpm during the exam. Left Ventricle: The left ventricle is normal in size and wall thickness. Left ventricular systolic function appears normal without focal wall motion abnormalities. The ejection fraction is estimated to be 55-60%. Diastolic parameters suggest probable normal left ventricular diastolic function and normal filling pressures. Right Ventricle: The right ventricle is normal in size and function. Atria: The left atrial size is normal. Right atrial size is normal. There is no Doppler evidence for an interatrial shunt. Mitral Valve: The mitral valve is normal in structure and function. There is trace mitral regurgitation. Aortic Valve: The aortic valve is trileaflet. There is no aortic valve stenosis. No aortic regurgitation is present. Tricuspid Valve: The tricuspid valve is normal in structure and function. There is trace tricuspid regurgitation. Pulmonic Valve: The pulmonic valve leaflets are thin and pliable; valve motion is normal. There is trace pulmonic regurgitation. There is no significant valvular heart disease. Great Vessels: The aortic root is normal size. The dimensions of the ascending aorta are normal. The IVC is of normal diameter and collapses greater than 50% with a sniff. This suggests a low right atrial pressure of 3 mm Hg. Pericardium/ Pleura There is no pericardial effusion. There is no pleural effusion. MMode/2D Measurements & Calculations LVIDd: 5.3 cm LVOT diam: 2.2 cm LVIDs: 3.5 cm Ao root diam: 3.0 cm FS: 34.4 % asc Aorta Diam: 3.3 cm EPSS: 0.78 cm Ao Arch Diam (Prox Trans): 3.1 cm IVSd: 0.97 cm LVPWd: 0.93 cm LV faria. diameter/BSA (cm/m^2): 2.6 LV sys. diameter/BSA (cm/m^2): 1.7 LA A2 area: 16.1 cm2 RA long axis: 4.8 cm LA A4 area: 16.2 cm2 RA area: 15.1 cm2 LA length (vol): 5.0 cm RA vol: 40.3 ml LA vol: 44.1 ml RA : 19.5 ml/m2 LA vol index: 21.3 ml/m2 IVC diam: 1.9 cm RVD1 (basal): 3.6 cm TAPSE: 2.4 cm Doppler Measurements & Calculations Ao V2 max: 107.8 cm/sec LVOT Max Howard: 71.2 cm/sec Ao V2 mean: 76.6 cm/sec LV V1 max P.0 mmHg Ao max P.7 mmHg LV V1 VTI: 15.6 cm Ao mean P.6 mmHg LATA(I,D): 2.6 cm2 Ao V2 VTI: 22.2 cm LATA(V,D): 2.5 cm2 sev ratio: 0.70 LATA indexed to BSA (cm^2/m^2): 1.3 MV E max howard: 42.8 cm/sec PA V2 max: 115.3 cm/sec MV A max howard: 38.5 cm/sec PA V2 mean: 81.5 cm/sec MV E/A: 1.1 PA mean P.0 mmHg Med Peak E' Howard: 7.6 cm/sec PA pr(Accel): 39.6 mmHg E/E' med: 5.6 Lat Peak E' Howard: 14.9 cm/sec E/E' lat: 2.9 E/e' average: 4.3 MV dec time: 0.27 sec SVLVOT): 58.7 ml Reading Physician:08:47 AM
== END ==
LOC: ECHO 07:08
PROVIDERS: Family Provider Pediatrics; PCP Family Medicine; Referring Provider Family Medicine; Visit Provider Family Medicine
DX: I10 Essential (primary) hypertension (principal)
CPT/HCPCS: 93306